=== PATIENT | female | born 1985 | race African-American/Black ===

== ENCOUNTER 2017-07-14 23:21 | Emergency (ER) | payer OTHER, BC ==
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
== END 2017-07-15 01:13 | disposition home or self-care (01) ==
LOC: MW.ED 23:21
DX: M25.512 Pain in left shoulder (principal); M54.5 Low back pain; M62.838 Other muscle spasm; V49.9XXA Car occupant (driver) (passenger) injured in unspecified traffic accident, initial encounter
CPT/HCPCS: 72100; 72100-26; 73030-26-LT; 73030-LT; 99283

== ENCOUNTER 2019-04-26 22:52 | Emergency (ER) | payer BC, OTHER ==
--- NOTE | 2019-04-26 23:11 | EDM.PDOC ---
ED HPI GENERAL MEDICAL PROBLEM - General Chief Complaint: Upper Extremity Injury/Pain Stated Complaint: FELL Time Seen by Provider: 04/26/19 22:57 - History of Present Illness INITIAL COMMENTS - FREE TEXT/NARRATIVE: General adult at least with his new during the day visit HISTORY AND PHYSICAL: History of present illness: Patient is a 33-year-old female who was in her usual state of good health when she slipped and fell on an outstretched left wrist but did not hit her head pass out or blackout. These events occurred approximately 7 hours ago and because of persistent discomfort her boyfriend encouraged her to come here to the ED. She has not taken any medication for the pain. She is right-hand dominant and she says that she fell forward into the side but she has no lower extremity pain no proximal left elbow or shoulder pain no distal hand or finger pain on the left and no face head neck or back pain. She says she can move her fingers but movement of her wrist causes some discomfort. Review of systems: As per history of present illness and below otherwise all systems reviewed and negative. Past medical history: As per history of present illness and as reviewed below otherwise noncontributory. Surgical history: As per history of present illness and as reviewed below otherwise noncontributory. Social history: No reported history of drug or alcohol abuse. Family history: As per history of present illness and as reviewed below otherwise noncontributory. Physical exam: Well-developed well-nourished overweight female who is nontoxic and vital signs are noted by me HEENT: Atraumatic, normocephalic,, negative for conjunctival pallor or scleral icterus, mucous membranes moist, throat clear, neck supple, nontender, trachea midline. Lungs: Clear to auscultation, breath sounds equal bilaterally, chest nontender. Heart: S1S2, regular, rate and rhythm no overt murmurs Abdomen: Soft, nondistended, nontender. Pelvis: Stable nontender. Genitourinary: Deferred. Rectal: Deferred. Extremities: Atraumatic full range of motion of all extremities with the exception of the left wrist where there is minimal soft tissue swelling appreciated and a small cystlike structure appreciated on the dorsal aspect of the wrist which the patient tells me is not new. There is no ecchymosis defects or deformities and there is only minimal tenderness on palpation of the wrist near the distal radius. The digits and distal hand are intact without tenderness defects or deformities as is the proximal forearm elbow humerus and shoulder. Pulses are intact the legs are, negative for cords or calf pain. Neurovascular unremarkable. Neuro: Awake, alert, oriented. Cranial nerves II through XII unremarkable. Cerebellum unremarkable. Motor and sensory unremarkable throughout. Exam nonfocal. Diagnostics: X-ray left hand and wrist Therapeutics: Patient declines pain medication Velcro wrist splint Impression: Left wrist injury Definitive disposition and diagnosis as appropriate pending reevaluation and review of above. - Related Data Allergies Allergy/AdvReac Type Severity Reaction Status Date / Time No Known Allergies Allergy Verified 07/14/17 23:42 Home Meds: Home Meds . 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 Musculoskeletal History: Reports: None Neurological History: Reports: None Psychiatric History: Reports: None Endocrine/Metabolic History: Reports: None Hematologic History: Reports: None Immunologic History: Reports: None Oncologic (Cancer) History: Reports: None Dermatologic History: Reports: None - Infectious Disease History Infectious Disease History: Reports: None - Past Surgical History Head Surgeries/Procedures: Reports: None Social & Family History - Family History Family Medical History: Noncontributory Review of Systems - Review of Systems Review Of Systems: Comprehensive ROS is negative, except as noted in HPI. ED EXAM, GENERAL - Physical Exam Exam: See Below (See dictation) Course - Vital Signs Last Recorded V/S: Last Vital Signs Temp 36.1 C 04/26/19 22:55 Pulse 86 04/26/19 22:55 Resp 16 04/26/19 22:55 BP 129/73 04/26/19 22:55 Pulse Ox 97 04/26/19 22:55 - Orders/Labs/Meds Orders: Active Orders 24 hr Category Date Time Status DME for Discharge [COMM] Stat Oth 04/27/19 00:03 Ordered Departure - Departure Time of Disposition: 00:04 Disposition: Home, Self-Care 01 Condition: Good Clinical Impression: Left wrist injury Qualifiers: Encounter type: initial encounter Qualified Code(s): S69.92XA - Unspecified injury of left wrist, hand and finger(s), initial encounter - Discharge Information Referrals: PCP,None [Primary Care Provider] - Forms: ED Department Discharge Additional Instructions: The following information is given to patients seen in the emergency department who are being discharged to home. This information is to outline your options for follow-up care. We provide all patients seen in our emergency department with a follow-up referral. The need for follow-up, as well as the timing and circumstances, are variable depending upon the specifics of your emergency department visit. If you don't have a primary care physician on staff, we will provide you with a referral. We always advise you to contact your personal physician following an emergency department visit to inform them of the circumstance of the visit and for follow-up with them and/or the need for any referrals to a consulting specialist. The emergency department will also refer you to a specialist when appropriate. This referral assures that you have the opportunity for followup care with a specialist. All of these measure are taken in an effort to provide you with optimal care, which includes your followup. Under all circumstances we always encourage you to contact your private physician who remains a resource for coordinating your care. When calling for followup care, please make the office aware that this follow-up is from your recent emergency room visit. If for any reason you are refused follow-up, please contact the [facility] emergency department at and ask to speak to the emergency department charge nurse. [facility] Specialty [facility] - Orthopedic Clinic Professional [address], [address] [place] [address] Elevate the area and use [id number] ibuprofen or Tylenol for pain management. Wear the splint you have been given for comfort for the next several days removing it at sleep times. Please connect with our orthopedics clinic using resources given to you above for follow-up care and return to ER as needed and as discussed Sepsis Event Note - Evaluation Sepsis Screening Result: No Definite Risk - Focused Exam Vital Signs: Vital Signs Temp Pulse Resp BP Pulse Ox 04/26/19 22:55 36.1 C 86 16 129/73 97 Date Exam was Performed: 04/27/19 Time Exam was Performed: 00:04 - My Orders Last 24 Hours: My Active Orders 04/27/19 00:03 DME for Discharge [COMM] Stat - Assessment/Plan Last 24 Hours: My Active Orders 04/27/19 00:03 DME for Discharge [COMM] Stat
--- NOTE | 2019-04-26 23:51 | CR ---
INDICATION: Trauma. Fall. Pain. TECHNIQUE: Three views of the left wrist. FINDINGS: No fracture, dislocation, erosion, or intrinsic lesion. IMPRESSION : Negative left wrist. Dictated by Pan Whitney MD @ Apr 26 2019 11:50PM Signed by Dr. Pan Whitney @ Apr 26 2019 11:50PM
--- NOTE | 2019-04-26 23:51 | CR ---
INDICATION: Trauma. Fall. Pain. TECHNIQUE: Three views of the left hand. FINDINGS: No acute fracture or dislocation. No erosion or intrinsic lesion. IMPRESSION: Negative left hand. Dictated by Pan Whitney MD @ Apr 26 2019 11:48PM Signed by Dr. Pan Whitney @ Apr 26 2019 11:49PM
== END 2019-04-27 00:40 | disposition home or self-care (01) ==
LOC: MW.ED 22:52
DX: S69.92XA Unspecified injury of left wrist, hand and finger(s), initial encounter (principal); W01.0XXA Fall on same level from slipping, tripping and stumbling without subsequent striking against object, initial encounter
CPT/HCPCS: 73110-26-LT; 73110-LT; 73130-26-LT; 73130-LT; 99282; 99283-25

== ENCOUNTER 2020-07-15 02:43 | Emergency (ER) | payer BC, OTHER, SELFPAY ==
[2020-07-15] MEDS ORDERED: Ketorolac 30 MG/ML SDV IM ONE (03:19)
[2020-07-15] MEDS ORDERED: Diazepam 2 MG Tab PO ONE (03:20)
--- NOTE | 2020-07-15 03:26 | EDM.PDOC ---
ED HPI GENERAL MEDICAL PROBLEM - General Chief Complaint: Back Pain or Injury Stated Complaint: LEFT FOOT SHARP PAIN Time Seen by Provider: 07/15/20 03:10 - History of Present Illness INITIAL COMMENTS - FREE TEXT/NARRATIVE: History of present illness: [] Patient is 2 days of severe pain in left hip. It radiates down the left leg. It causes spasm. Changing the position over and over helps a little bit. The patient's had episodes in the past and they responded to anti-inflammatory medicine the muscle relaxers. The patient has no neurologic findings. She also says she has incontinence of urine but she has control of your sphincter to some degree but she just cannot make it to the bathroom in time and this is chronic and not new. The patient has no loss of control of her bowels. She has no sensory or motor loss below the waist. No dysuria or other urinary symptoms and no new urinary symptoms. There is been no history of injury and she has no history of malignancy. Review of systems: As per history of present illness and below otherwise all systems reviewed and negative. Past medical history: As per history of present illness and as reviewed below otherwise noncontributory. Surgical history: As per history of present illness and as reviewed below otherwise noncontributory. Social history: No reported history of drug or alcohol abuse. Family history: As per history of present illness and as reviewed below otherwise noncontributory. Physical exam: Constitutional - well developed, well-nourished and in no acute distress HEENT - normocephalic, no evidence of trauma - external nose and mouth normal - no mass in neck and no JVD - mucosae moist EYES - full EOM, PERRL, no icterus - no evidence of inflammation, injection, or drainage Respiratory - no respiratory distress, equal bilateral expansion, lungs clear to auscultation and no abnormal lung sounds Cardiovascular - Regular Rhythm with S1 and S2 appreciated and no murmur, gallop or rub. GI - abdomen soft without distension or organomegaly - normal bowel sounds - no guard or rebound Musculoskeletal straight leg raise on the right to 45 degrees causes a little bit of pain crossover to the left side of the hip. She is tender in the sciatic region and posterior thigh. Straight leg raise on the left is negative. No gross deformity of long bones or joints - no tenderness, swelling or edema Neurologic - Alert and oriented times four - CN II-XII grossly intact - motor sensory and coordination symmetrically normal Psychiatric - appropriate mood and affect with normal thought content Hematologic - No petechiae or purpura - mucosa appropriate color and sclera not pale - normal nail bed color and refill Integument - no rash or evidence of trauma - normal turgor Diagnostics: [] Therapeutics: [] Impression: [] Plan: [] Definitive disposition and diagnosis as appropriate pending reevaluation and review of above. 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 Musculoskeletal History: Reports: None Neurological History: Reports: None Psychiatric History: Reports: None Endocrine/Metabolic History: Reports: None Hematologic History: Reports: None Immunologic History: Reports: None Oncologic (Cancer) History: Reports: None Dermatologic History: Reports: None - Infectious Disease History Infectious Disease History: Reports: None - Past Surgical History Head Surgeries/Procedures: Reports: None HEENT Surgical History: Reports: Tonsillectomy GI Surgical History: Reports: None Social & Family History - Family History Family Medical History: No Pertinent Family History - Tobacco Use Tobacco Use Status *Q: Never Tobacco User - Caffeine Use Caffeine Use: Reports: None - Recreational Drug Use Recreational Drug Use: No ED ROS GENERAL - Review of Systems Review Of Systems: Comprehensive ROS is negative, except as noted in HPI. ED EXAM, GENERAL - Physical Exam Exam: See Below Free Text/Narrative:: My physical exam is in the HPI Course - Vital Signs Last Recorded V/S: Last Vital Signs Temp 36.1 C 07/15/20 02:55 Pulse 95 07/15/20 02:55 Resp 18 07/15/20 02:55 BP 128/49 L 07/15/20 02:55 Pulse Ox 97 07/15/20 02:55 - Orders/Labs/Meds Orders: Active Orders 24 hr Category Date Time Status Ketorolac [Toradol] Med 07/15/20 03:19 Once 30 mg IM ONETIME ONE diazePAM [Valium] Med 07/15/20 03:20 Once 5 mg PO ONETIME ONE Medication Orders Diazepam (Diazepam 2 Mg Tab) 5 mg PO ONETIME ONE Stop: 07/15/20 03:21 Ketorolac Tromethamine (Ketorolac 30 Mg/Ml Sdv) 30 mg IM ONETIME ONE Stop: 07/15/20 03:20 Meds: Medications Generic Name Dose Route Start Last Admin Trade Name Lisa PRN Reason Stop Dose Admin Diazepam 5 mg 07/15/20 03:20 Diazepam 2 Mg Tab PO 07/15/20 03:21 ONETIME ONE Ketorolac Tromethamine 30 mg 07/15/20 03:19 Ketorolac 30 Mg/Ml Sdv IM 07/15/20 03:20 ONETIME ONE Departure - Departure Time of Disposition: 03:45 Disposition: Home, Self-Care 01 Condition: Good Clinical Impression: Sciatica - Discharge Information Instructions: Sciatica, [id number] Referrals: Aishwarya Benoit NP [Primary Care Provider] - Additional Instructions: Take 500 mg naproxen or 600 mg ibuprofen as directed in the over the counter forearm along with a muscle relaxer. Be careful a muscle relaxer will also make you relaxed and may make you tired. [facility] - Primary Care [address] [place] [address] [place] [address] The following information is given to patients seen in the emergency department who are being discharged to home. This information is to outline your options for follow-up care. We provide all patients seen in our emergency department with a follow-up referral. The need for follow-up, as well as the timing and circumstances, are variable depending upon the specifics of your emergency department visit. If you don't have a primary care physician on staff, we will provide you with a referral. We always advise you to contact your personal physician following an emergency department visit to inform them of the circumstance of the visit and for follow-up with them and/or the need for any referrals to a consulting specialist. The emergency department will also refer you to a specialist when appropriate. This referral assures that you have the opportunity for follow-up care with a specialist. All of these measure are taken in an effort to provide you with optimal care, which includes your follow-up. Under all circumstances we always encourage you to contact your private physician who remains a resource for coordinating your care. When calling for follow-up care, please make the office aware that this follow-up is from your recent emergency room visit. If for any reason you are refused follow-up, please contact the [facility] Emergency Department at and asked to speak to the emergency department charge nurse. Sepsis Event Note (ED) - Evaluation Sepsis Screening Result: No Definite Risk - Focused Exam Vital Signs: Vital Signs Temp Pulse Resp BP Pulse Ox 07/15/20 02:55 36.1 C 95 18 128/49 L 97 - My Orders Last 24 Hours: My Active Orders 07/15/20 03:19 Ketorolac [Toradol] 30 mg IM ONETIME ONE 07/15/20 03:20 diazePAM [Valium] 5 mg PO ONETIME ONE - Assessment/Plan Last 24 Hours: My Active Orders 07/15/20 03:19 Ketorolac [Toradol] 30 mg IM ONETIME ONE 07/15/20 03:20 diazePAM [Valium] 5 mg PO ONETIME ONE
[2020-07-15] MEDS ORDERED: Diazepam 5 MG Tab PO ONE (03:57)
== END 2020-07-15 04:08 | disposition home or self-care (01) ==
LOC: MW.ED 02:43
DX: M54.32 Sciatica, left side (principal)
CPT/HCPCS: 81025; 96372; 99283; A9270; J1885

== ENCOUNTER 2022-09-23 20:58 | Emergency (ER) | payer BC ==
[2022-09-24] MEDS ORDERED: Sodium Chloride 0.9% 10 ML Syringe FLUSH PRN (00:25)
[2022-09-24] MEDS ORDERED: Sodium Chloride 0.9% 2.5 ML Syringe FLUSH PRN (00:25)
[2022-09-24] MEDS ORDERED: Sodium Chloride 0.9% 1,000 ML IV ONE (00:25)
[2022-09-24] MEDS ORDERED: Meclizine 25 MG Tab PO ONE (00:31)
[2022-09-24 00:33] LABS: BASOPHILS PERCENT AUTO 0.4 % (0.0-1.5); EOSINOPHILS ABSOLUTE AUTO 0.1 K/uL (0.0-0.7); EOSINOPHILS PERCENT AUTO 1.2 % (0.0-7.0); HEMATOCRIT 43.4 % (36.0-46.0); HEMOGLOBIN 15.4 g/dL (12.0-16.0); LYMPHOCYTES ABSOLUTE AUTO 3.4 K/uL (0.6-2.4); LYMPHOCYTES PERCENT AUTO 50.4 % (16.0-40.0); MEAN CORPUSCULAR HEMOGLOBIN 28.2 pg (27.0-32.0); MEAN CORPUSCULAR HGB CONC 35.5 g/dL (31.0-37.0); MEAN CORPUSCULAR VOLUME 79.5 fL (80.0-98.0); MONOCYTES ABSOLUTE AUTO 0.6 K/uL (0.0-0.8); MONOCYTES PERCENT AUTO 8.1 % (0.0-15.0); NEUTROPHILS ABSOLUTE AUTO 2.7 K/uL (1.4-5.7); NEUTROPHILS PERCENT AUTO 39.9 % (48.0-80.0); PLATELET COUNT,PLT 228 K/uL (150-400); RED BLOOD CELL COUNT 5.46 M/uL (4.30-5.90); WHITE BLOOD CELL COUNT,WBC 6.82 K/uL (4.0-11.0)
[2022-09-24 00:45] LABS: A/G RATIO 0.8 (0.9-1.6); ALBUMIN 3.6 g/dL (3.4-5.0); BILIRUBIN TOTAL 0.5 mg/dL (0.2-1.0); CALCIUM 9.1 mg/dL (8.5-10.1); CARBON DIOXIDE,CO2 24.7 mmol/L (21.0-32.0); CREATININE 0.8 mg/dL (0.6-1.0); EST CRCL DRUG DOSING (CG) 83.14 mL/min; POTASSIUM,K 4.1 mmol/L (3.5-5.1); PROTEIN TOTAL,TP 8.1 g/dL (6.4-8.2)
[2022-09-24 01:00] LABS: BASE EXCESS VENOUS -0.7 (-2.0-3.0); BICARBONATE,VENOUS 26 mEq/L (23-28); PCO2 VENOUS 48 mmHG (41-51); PH,VENOUS 7.34 (7.31-7.41)
[2022-09-24 01:01] LABS: PO2 VENOUS < 30 mmHG
== END 2022-09-24 04:47 | disposition left against medical advice (07) ==
LOC: MW.ED 20:58
DX: R42 Dizziness and giddiness (principal)
CPT/HCPCS: 36415; 80053; 81003; 81025; 82803; 82947; 85025; 93005; 96360; 99284; A9270; J3490; J7030